=== PATIENT | male | born 1965 | race Caucasian/White ===

== ENCOUNTER → 2024-12-19 | Outpatient (CLI) | payer OTHER ==
--- NOTE | 2024-12-19 09:40 | MR ---
EXAMINATION TYPE: MR shoulder RT wo con DATE OF EXAM: 12/19/2024 6:39 AM COMPARISON: Radiographs 12/17/2024. CLINICAL INDICATION: Male, 59 years old with history of M25.511 PAIN IN RIGHT SHOULDER, Rt shoulder b one spur x 3 years TECHNIQUE: Multiplanar, multisequence imaging of the right shoulder is performed without contrast. FINDINGS: The long head biceps tendon appears intact and appropriately situated along the trochlear groove. Mild inhomogeneity and thickening of the subscapularis tendon which otherwise remains intact. There is severe degenerative change at the acromial clavicular joint with bulky marginal spurring, figueroa bchondral cystic change and edema, and capsular hypertrophy. Large inferior spur of greater significa nce the underlying myotendinous junction of the supraspinatus. There is mild effusion in the subacromial/subdeltoid bursa with extensive bursal sided fraying of bot h supraspinatus and infraspinatus tendons. Heterogeneity of both tendons also noted and a very shallo w bursal sided tear of the anterior to mid supraspinatus tendon measuring 1.8 cm long by 8 mm AP. No high-grade partial or full-thickness rotator cuff tear is seen. No atrophy of the rotator cuff musculature. The glenohumeral joint is intact without significant joint effusion. There is some irregularity of the glenoid labrum along the posterior aspect of the superior labrum, c oronal image 17. A labral cyst. No Hill-Sachs deformity or os acromiale. Mild patchy red marrow hyperplasia noted. No suspicious bone marrow replacement. IMPRESSION: 1. Mild to moderate diffuse rotator cuff tendinosis. In addition, there is severe AC joint OA with a large inferior spur abrading against the underlying cuff. 2. Secondary extensive bursal sided fraying of the supraspinatus/infraspinatus tendons as well as a v winter shallow bursal sided tear of the anterior to mid supraspinatus tendon measuring 1.8 x 0.8 cm. No high-grade partial or full-thickness rotator cuff tear. 3. Suspect a small tear of the posterior aspect of the superior labrum. [facility], Workstation: [facility], 12/19/2024 9:37 AM
== END | disposition home or self-care (01) ==
LOC: RADMRIMAIN 05:57
PROVIDERS: ATTEND Orthopaedic Surgery
DX: M19.011 Primary osteoarthritis, right shoulder (principal); M67.813 Other specified disorders of tendon, right shoulder

== ENCOUNTER → 2025-03-05 | Outpatient (CLI) | payer OTHER ==
--- NOTE | 2025-03-06 12:40 | CA ---
Transthoracic Echo Report Name: Alonso Ely Age: 59 Gender: M : 1965 Exam Date: 03/05/2025 15:06 Exam Location: [facility] Ht (in): 72 Wt (lb): 190 Ordering Physician: Zeus Liao DO Attending/Referring Phys: Zeus Liao DO Relocation Associate Shamika Jurado RDCS Procedure CPT: Indications: I34.1 NONRHEUMATIC MITRAL (VALVE) PROLAPSE Cardiac Hx: Technical Quality: Good Contrast 1: Total Dose (mL): Contrast 2: Total Dose (mL): MEASUREMENTS (Male / Female) Normal Values 2D ECHO LV Diastolic Diameter PLAX 5.2 cm 4.2 - 5.9 / 3.9 - 5.3 cm LV Systolic Diameter PLAX 3.5 cm IVS Diastolic Thickness 0.8 cm 0.6 - 1.0 / 0.6 - 0.9 cm LVPW Diastolic Thickness 0.8 cm 0.6 - 1.0 / 0.6 - 0.9 cm LV Relative Wall Thickness 0.3 LVOT Diameter 2.4 cm LV Diastolic Volume MOD BP 131.5 cm??? 67 - 155 / 56 - 104 cm??? LV Systolic Volume MOD BP 48.5 cm??? 22 - 58 / 19 - 49 cm??? LV Ejection Fraction MOD BP 63.2 % >= 55 % LV Cardiac Index MOD BP 2411.1 cm???/min???m??? LV Diastolic Volume MOD 4C 139.5 cm??? LV Systolic Volume MOD 4C 55.3 cm??? LV Ejection Fraction MOD 4C 60.3 % LV Cardiac Index MOD 4C 2442.3 cm???/min???m??? LV Diastolic Length 4C 8.5 cm LV Systolic Length 4C 7.1 cm LV Diastolic Volume MOD 2C 120.6 cm??? LV Systolic Volume MOD 2C 42.1 cm??? LV Ejection Fraction MOD 2C 65.0 % LV Cardiac Index MOD 2C 2276.3 cm???/min???m??? LV Diastolic Length 2C 8.8 cm LV Systolic Length 2C 6.9 cm LA Volume 60.4 cm??? 18 - 58 / 22 - 52 cm??? LA Volume Index 28.7 cm???/m??? 16 - 28 cm???/m??? Ascending Aorta Diameter 3.1 cm DOPPLER AV Peak Velocity 159.7 cm/s AV Peak Gradient 10.2 mmHg AV Mean Velocity 113.3 cm/s AV Mean Gradient 5.8 mmHg AV Velocity Time Integral 31.9 cm LVOT Peak Velocity 94.6 cm/s LVOT Peak Gradient 3.6 mmHg LVOT Velocity Time Integral 20.2 cm LVOT Stroke Volume 94.5 cm??? LVOT Stroke Volume Index 45.3 ml/m??? LVOT Cardiac Index 2742.3 cm???/min???m??? AV Area Cont Eq vti 3.0 cm??? AV Area Cont Eq pk 2.8 cm??? MV Area PHT 3.3 cm??? Mitral E Point Velocity 53.4 cm/s Mitral A Point Velocity 43.7 cm/s Mitral E to A Ratio 1.2 MV Deceleration Time 226.8 ms TR Peak Velocity 219.2 cm/s TR Peak Gradient 19.2 mmHg Right Atrial Pressure 5.0 mmHg Pulmonary Artery Systolic Pressu 24.2 mmHg Right Ventricular Systolic Press 24.2 mmHg PV Peak Velocity 100.8 cm/s PV Peak Gradient 4.1 mmHg FINDINGS Left Ventricle Left ventricular ejection fraction is estimated at 55-60 %. Left ventricular cavity size normal. Left ventricular wall thickness normal. No obvious regional wall motion abnormalities. Right Ventricle Normal right ventricular size and function. Right ventricular systolic pressure within normal limits. Right Atrium Normal right atrial size. Left Atrium Mildly increased left atrial volume. Mitral Valve Structurally normal mitral valve. Mild prolapse of the posterior mitral valve leaflet. No mitral stenosis. Mild mitral regurgitation. Aortic Valve Trileaflet aortic valve. Aortic valve sclerosis. No aortic valve stenosis or regurgitation. Tricuspid Valve Structurally normal tricuspid valve. No tricuspid stenosis. Trace to mild tricuspid regurgitation. Pulmonic Valve Structurally normal pulmonic valve. No pulmonic stenosis. No pulmonic regurgitation. Pericardium No pericardial effusion. Aorta Normal size aortic root and proximal ascending aorta. CONCLUSIONS LVEF 55 to 60% No obvious regional wall motion abnormality Mild prolapse of posterior mitral leaflet with trace to mild mitral regurgitation Normal RV size systolic function Mild left atrial dilatation No prior echo to compare with in database Previewed by: Dr Tip Marcelo (Electronically Signed) Final Date: 06 March 2025 12:39
== END | disposition home or self-care (01) ==
LOC: RADECHMAIN 14:57
PROVIDERS: ATTEND Internal Medicine
DX: I34.1 Nonrheumatic mitral (valve) prolapse (principal); I51.7 Cardiomegaly
CPT/HCPCS: 93306

== ENCOUNTER 2025-04-11 07:28 | Day surgery (SDC) | payer OTHER ==
[2025-04-09 11:29] VITALS: BMI 26.4
[2025-04-11] MEDS: EMPTY BAG 1 BAG with SODIUM CHLORIDE 0.9% 1,000 ML IV SCH (08:03)
[2025-04-11 08:05] VITALS: RESP 16; TEMP 98.4
[2025-04-11] MEDS: IV FLUID CONTINUATION 1,000 ML IV ONE (08:05)
[2025-04-11 08:22] LABS: African American GFR (CKD) >90 (>60 ml/min/1.73 sqM); Anion Gap 12 mmol/L; Blood Urea Nitrogen 14 mg/dL (9-20); Calcium 9.7 mg/dL (8.4-10.2); Carbon Dioxide 21 mmol/L (22-30); Chloride 108 mmol/L (98-107); Glucose 110 mg/dL (74-99); Non-African American GFR(CKD) >90 (>60 ml/min/1.73 sqM); Potassium 3.6 mmol/L (3.5-5.1); Sodium 141 mmol/L (137-145)
[2025-04-11 08:31] LABS: Basophils # (A) 0.07 10*3/uL (0.00-0.10); Basophils % (A) 0.7 %; Eosinophils # (A) 0.27 10*3/uL (0.04-0.35); Eosinophils % (A) 2.5 %; HCT 44.7 % (39.6-50.0); HGB 15.4 g/dL (13.0-17.0); Lymphocytes # (A) 4.06 10*3/uL (0.90-5.00); Lymphocytes % (A) 38.3 %; MCH 30.6 pg (27.0-32.0); MCHC 34.5 g/dL (32.0-37.0); MCV 88.7 fL (80.0-97.0); Mean Platelet Volume 9.3 fL (9.5-12.2); Monocytes # (A) 1.14 10*3/uL (0.20-1.00); Monocytes % (A) 10.7 %; Neutrophils # (A) 5.03 10*3/uL (1.80-7.70); Neutrophils % (A) 47.4 %; Platelet Count 198 10*3/uL (140-440); RBC 5.04 10*6/uL (4.40-5.60); RDW 12.9 % (11.5-14.5); WBC 10.61 10*3/uL (4.50-10.00)
[2025-04-11] MEDS: fentaNYL (PF) 50 MCG/1 ML VIAL IVP ONE (09:18)
[2025-04-11] MEDS: NITROGLYCERIN 1000MCG/10ML SYRINGE INTRAARTER ONE (09:18)
[2025-04-11] MEDS: LIDOCAINE 2% (PF) 20 MG/ML 5 ML VIAL SQ ONE (09:18)
[2025-04-11] MEDS: VERAPAMIL 2.5 MG/ML 4 ML VIAL INTRAARTER ONE (09:18)
[2025-04-11] MEDS: MIDAZOLAM HCL 10 MG/10 ML VIAL IVP ONE (09:18)
[2025-04-11] MEDS: HEPARIN SODIUM 1,000 UN/ML (10ML VL) IV ONE (09:18)
[2025-04-11] MEDS: ONDANSETRON 4 MG/2 ML VIAL IVP ONE (09:29)
[2025-04-11] MEDS: MIDAZOLAM 2 MG/2 ML VIAL IVP ONE (09:33)
[2025-04-11] MEDS: IOPAMIDOL-370 100ML BTL INTRATHECA ONE (09:46)
[2025-04-11] MEDS: HEPARIN SODIUM,PORCINE (1 ML) 2,500 UNIT in SODIUM CHLORIDE 0.9% 250 ML IRRIGATION ONE (09:46)
[2025-04-11] MEDS: HEPARIN SODIUM,PORCINE 10,000 UNIT in SODIUM CHLORIDE 0.9% 1,000 ML IRRIGATION ONE (09:46)
--- NOTE | 2025-04-11 10:47 | P.OP ---
Date of Procedure: 04/11/25 Description of Procedure: Preoperative diagnosis: Thania 3 peripheral arterial disease [right] lower extremity worse than left Postoperative diagnosis: Same Procedure: Ultrasound-guided right radial artery access Placement of catheter in infrarenal abdominal aorta, selective second order, from radial approach Aortogram with bilateral lower extremity runoffs Selective third order right lower extremity angiogram via iliac artery catheter placement Moderate conscious sedation with personal monitoring certified RN administration and personal hemodynamic monitoring for 24 minutes Surgeon: Zee Brown D.O. EBL: Less than 5 cc IV fluids: See records Urine output: Not measured Drains: None Complications: None immediately apparent Condition: Stable to recovery Operative indication and findings: Patient is [59] a-year-old with peripheral vascular disease. On workup and evaluation was found to have abnormal ABIs prompting recommendations for an angiogram. Risks and benefits including but not limited to bleeding, infection, injury to the vessel, stroke, cardiopulmonary risks and ischemic changes to the extremities were discussed. They seemingly understood this willing to proceed. Procedure in detail: Patient was taken to the special suite and placed in supine position. The right upper extremity was prepped and draped in usual sterile fashion. A preprocedural timeout was performed, all parties were in agreement. Using the ultrasound, the radial artery was identified. The skin overlying was anesthetized with 1% lidocaine plain. The artery was patent without significant calcific disease and a permanent image was stored. Under direct visualization, the artery was accessed and Seldinger technique was used to place a 5 slender sheath. Catheters and wires were then used to selectively place a catheter across the subclavian, into the aortic arch and then selectively in the descending thoracic aorta and down into the abdominal aorta. Aortogram was performed. Catheter was then advanced to the level of the iliac bifurcation. A bilateral lower extremity step-off was performed. To allow for better evaluation of the areas of occlusion and reconstitution, using catheters and wires the right common iliac artery was accessed selectively. The catheter was placed into the distal common iliac artery and a right lower extremity angiogram was performed after satisfactory images, catheters and wires were removed. The sheath was removed and a TR band was placed. Angiographic interpretation: Visualized portions of the aorta appear normal in course and caliber. Visualized portions of the celiac, superior mesenteric and renal arteries appear patent without significant disease. The distal aorta is patent. The bilateral common, internal and external iliac arteries appear patent without significant disease. On the right the common femoral artery appears patent without significant disease. The profunda is patent without significant disease. The superficial femoral artery has some diminished flow through the thigh with mild diffuse disease up until the area of occlusion at the mid thigh. There is reconstitution of flow at the distal thigh. There are multiple areas of collaterals through the right lower extremity. The visualized portions of the popliteal artery on the right are patent without significant disease but again with multiple collateral vessels. The infrapopliteal area has 3 vessels however diminutive due to lack of contrast. On the left, the common femoral, superficial femoral and profunda appear patent. There is a high-grade focal stenosis of the superficial femoral artery at the mid thigh with quick reconstitution. There are multiple collateral vessels and further distal reconstitution via collateral at the proximal popliteal artery. Visualized portion of the popliteal artery appear patent without significant disease. Difficult visualization of the infrapopliteal vessels however I believe the anterior tibial artery appears occluded at its takeoff. The tibioperoneal trunk appears patent. The peroneal artery appears patent down to the ankle where it reconstitutes the posterior tibial artery. The posterior tibial artery at the calf is patent proximally but occludes early after its takeoff. Plan - Discharge Summary Discharge Rx Participant: No New Discharge Prescriptions: No Action Aspirin 81 mg PO QAM Atorvastatin Calcium 40 mg PO QAM Inositol/Choline/Biofla/Vitb,C [Lipo Flavonoid Caplet] 500 mg PO DAILY HYDROcodone/APAP 10-325MG [[place] 10-325] 1 tab PO DAILY PRN PRN Reason: Pain lisinopriL [Zestril] 40 mg PO QAM cilostazoL [Pletal] 100 mg PO BID Discharge Medication List Aspirin 81 mg PO QAM 04/09/25 [History] Atorvastatin Calcium 40 mg PO QAM 04/09/25 [History] HYDROcodone/APAP 10-325MG [[place] 10-325] 1 tab PO DAILY PRN 04/09/25 [History] Inositol/Choline/Biofla/Vitb,C [Lipo Flavonoid Caplet] 500 mg PO DAILY 04/09/25 [History] cilostazoL [Pletal] 100 mg PO BID 04/09/25 [History] lisinopriL [Zestril] 40 mg PO QAM 04/09/25 [History] Follow up Appointment(s)/Referral(s): Zee Richmond DO [STAFF PHYSICIAN] - 04/24/25 11:15 am (FOLLOW UP APPOINTMENT WAS ALREADY MADE WITH DR. BROWN ON APRIL 24, 2025 AT 11:15. ) Patient Instructions/Handouts: Moderate Sedation (DC), Angiogram (DC), After Radial Heart Catheterization (GEN) Activity/Diet/Wound Care/Special Instructions: NO DRIVING FOR TWO DAYS. OK TO SHOWER TOMORROW/REMOVE DRESSING PRIOR TO SHOWER. NO NEED TO REAPPLY DRESSING. AVOID LOTIONS/POWDERS/CREAMS TO PUNCTURE SITE TO AVOID RISK OF INFECTION. SIGNS OF INFECTION IE: FEVER, RASH, UNUSUAL DRAINAGE OR HARD KNOT OR LUMP CONTACT DR TO BE EVALUATED. IF PUNCTURE SITE BLEEDS, APPLY FIRM PRESSURE AND GO TO ER. DO NOT DRIVE SELF. MEDICATIONS PER DR BROWN. F/U APPOINTMENT DIRECTED. AVOID PUSHING PULLING LIFTING MORE THAN 5 LBS FOR FIVE DAYS. Discharge Disposition: HOME SELF-CARE
--- NOTE | 2025-04-11 11:52 | IR ---
EXAMINATION TYPE: IR angio abdominal w runoff DATE OF EXAM: 04/11/2025 CLINICAL INDICATION: Male, 59 years old with history of right leg pain, 2.3min fluoro, 27.9Gycm2, TECHNIQUE: Fluoroscopy. COMPARISON: None. FINDINGS: Fluoroscopic guidance was provided during abdominal angiogram with runoff procedure perfor med by Dr. Vance. A total of 138 seconds of fluoroscopic time was utilized during the procedure and 278 spot images was acquired. TOTAL DAP = 27.9 Gycm2. IMPRESSION: As Above. [facility], , 04/11/2025 11:49 AM
[2025-04-11 12:06] VITALS: BP 110/78; PULSE 59
== END 2025-04-11 13:09 | disposition home or self-care (01) ==
LOC: CATHCVL 07:28
PROVIDERS: ATTEND Surgery
DX: I70.218 Atherosclerosis of native arteries of extremities with intermittent claudication, other extremity (principal); I10 Essential (primary) hypertension; E78.5 Hyperlipidemia, unspecified; I34.1 Nonrheumatic mitral (valve) prolapse; Z88.0 Allergy status to penicillin; Z79.02 Long term (current) use of antithrombotics/antiplatelets
CPT/HCPCS: 36247; 75625; 75716; 80048; 85025; C1769 ×2; C1894; J2250 ×2; J1644 ×3; J2405; Q9967; J2003; J3010; J2305

== ENCOUNTER 2025-04-30 08:32 | Day surgery (SDC) | payer OTHER ==
[2025-04-29 08:36] VITALS: BMI 25.7
[~2025-04-30 08:32] MED LIST: ALPRAZolam 0.25 MG TAB PO PRN; ALPRAZolam 0.5 MG TAB PO PRN; HEPARIN SODIUM,PORCINE (1 ML) 2,500 UNIT in SODIUM CHLORIDE 0.9% 250 ML IRRIGATION PRN; ZOLPIDEM 5 MG TAB PO PRN
[2025-04-30 09:14] LABS: Basophils # (A) 0.09 10*3/uL (0.00-0.10); Basophils % (A) 0.7 %; Eosinophils # (A) 0.17 10*3/uL (0.04-0.35); Eosinophils % (A) 1.3 %; HCT 45.7 % (39.6-50.0); HGB 15.9 g/dL (13.0-17.0); Lymphocytes # (A) 3.59 10*3/uL (0.90-5.00); Lymphocytes % (A) 27.7 %; MCHC 34.8 g/dL (32.0-37.0); MCV 89.1 fL (80.0-97.0); Mean Platelet Volume 9.1 fL (9.5-12.2); Monocytes # (A) 1.13 10*3/uL (0.20-1.00); Monocytes % (A) 8.7 %; Neutrophils # (A) 7.94 10*3/uL (1.80-7.70); Neutrophils % (A) 61.2 %; Platelet Count 201 10*3/uL (140-440); RBC 5.13 10*6/uL (4.40-5.60); RDW 12.8 % (11.5-14.5); WBC 12.97 10*3/uL (4.50-10.00)
[2025-04-30] MEDS: EMPTY BAG 1 BAG with SODIUM CHLORIDE 0.9% 1,000 ML IV SCH (09:20)
[2025-04-30 09:41] LABS: African American GFR (CKD) >90 (>60 ml/min/1.73 sqM); Anion Gap 11 mmol/L; Blood Urea Nitrogen 11 mg/dL (9-20); Calcium 9.5 mg/dL (8.4-10.2); Carbon Dioxide 19 mmol/L (22-30); Chloride 111 mmol/L (98-107); Glucose 113 mg/dL (74-99); Non-African American GFR(CKD) >90 (>60 ml/min/1.73 sqM); Sodium 141 mmol/L (137-145)
[2025-04-30 09:56] LABS: Potassium 4.6 mmol/L (3.5-5.1)
[2025-04-30] MEDS: MIDAZOLAM 2 MG/2 ML VIAL IVP ONE ×2 (10:40→11:17)
[2025-04-30] MEDS: LIDOCAINE 1% INJ 10MG/ML (20 ML MDV) SQ ONE (10:40)
[2025-04-30] MEDS: fentaNYL (PF) 50 MCG/1 ML VIAL IVP ONE ×3 (10:40→11:16)
[2025-04-30] MEDS: HEPARIN SODIUM 1,000 UN/ML (10ML VL) IVP ONE (10:49)
[2025-04-30] MEDS: SODIUM CHLORIDE 0.9% 1,000 ML IV ONE (10:50)
[2025-04-30] MEDS: HEPARIN SODIUM,PORCINE 10,000 UNIT in SODIUM CHLORIDE 0.9% 1,000 ML IRRIGATION PRN (10:50)
[2025-04-30] MEDS: IOPAMIDOL-370 100ML BTL INJ ONE (11:41)
--- NOTE | 2025-04-30 12:19 | P.OP ---
Date of Procedure: 04/30/25 Description of Procedure: Preoperative diagnosis: Thania 3 peripheral arterial disease right lower extremity, superficial femoral artery occlusive disease Postoperative diagnosis: Same Procedure: #1 ultrasound-guided left common femoral artery access 2. Left iliofemoral angiogram 3. Right lower extremity third order angiogram to distal popliteal artery 4. Atherectomy with Hawk M right superficial femoral artery 5. Percutaneous transluminal balloon angioplasty drug-coated balloon 6 x 250 6. Percutaneous transluminal stent placement Zilver 7 x 80, 7 x 120 7. Moderate consultation with personal monitoring certified artery ministration with hemodynamic monitoring x 64 minutes Surgeon: Zee Vance D.O. EBL: 10 cc IV fluids: See records Urine output: Not measured Drains: None Complications: None immediately apparent Condition: Stable to recovery Operative indication and findings: Patient is a 59-year-old male who had lifestyle-limiting [place] 3 right lower extremity pain with evidence of superficial femoral artery occlusion. Due to this the recommendations were for endovascular revascularization. Risk and benefits were discussed including an element to bleeding, infection, injury to the vessel. He seemed understood and was willing to proceed. Procedure in detail: Patient was brought to the op suite placed in supine position. The bilateral groins were prepped and draped in usual sterile fashion the ultrasound is utilized and the right common femoral artery was identified. The skin overlying was anesthetized 1% lidocaine plain. The artery was identified and the artery was accessed under ultrasound guidance. There was return of pulsatile bleeding and Seldinger technique was used with 6 Afghan sheath. An angiogram was performed showing widely patent common femoral, external iliac and common iliac artery without significant disease. The internal iliac artery was small. Catheters and wires were then used to traverse to the common iliac artery and the contralateral side selective of the superficial femoral artery and subsequently imaging was performed. At this point a longer IV sheath was placed over a glide advantage wire. A glide advantage and quick cross catheters were utilized to traverse the lesion and a confirmatory third order angiogram was performed of the distal popliteal artery with evidence of luminal gain and three-vessel takeoff. The AT appeared patent with occlusion shortly beyond its takeoff. The TP trunk is patent without significant disease. The peroneal is widely patent to the ankle where it feeds of the previously occluded posterior tibial artery strongly at the ankle. There is reconstitution of the anterior tibial artery at the mid calf as well. A spider filter was then placed in the distal popliteal artery. A Hawk M atherectomy device was passed with multiple passes with removal of significant calcific disease. The area was then ballooned with a 6 x 250 drug-coated balloon. Repeat imaging was performed, there was some atypical appearance in the distal superficial femoral artery as well as a portion of the proximal therefore decision was made to place a stent due to the hang up of contrast in this area. A Zilver 7 x 80 stent was placed first distally followed by a 7 x 120 stent to further cover the full area of disease and intervention. Repeat imaging was excellent showing brisk flow through the superficial femoral artery with maintenance of the same tibial vessel as previously visualized. At this point catheters and wires were then removed. The sheath was removed and a short 6 Afghan sheath was placed. A closure device was utilized and manual pressure was held. Patient was allowed to awaken and transferred to recovery in stable condition. There was a palpable PT pulse on the right foot at this time. Plan - Discharge Summary Discharge Rx Participant: No New Discharge Prescriptions: No Action Aspirin 81 mg PO QAM Atorvastatin Calcium 40 mg PO QAM HYDROcodone/APAP 10-325MG [[place] 10-325] 1 tab PO DAILY PRN PRN Reason: Pain lisinopriL [Zestril] 40 mg PO QAM Discharge Medication List Aspirin 81 mg PO QAM 04/09/25 [History] Atorvastatin Calcium 40 mg PO QAM 04/09/25 [History] HYDROcodone/APAP 10-325MG [[place] 10-325] 1 tab PO DAILY PRN 04/09/25 [History] lisinopriL [Zestril] 40 mg PO QAM 04/09/25 [History] Follow up Appointment(s)/Referral(s): Zee Richmond DO [STAFF PHYSICIAN] - 05/15/25 10:45 am (FOLLOW UP APPOINTMENT MADE. ) Activity/Diet/Wound Care/Special Instructions: Resume regular diet. Resume regular bathing starting tomorrow. No heavy lifting. No driving for 2 to 3 days. Discharge Disposition: HOME SELF-CARE
--- NOTE | 2025-04-30 14:10 | IR ---
EXAMINATION TYPE: IR stent intravas non coronary Intraoperative/procedural fluoroscopic services were provided. CLINICAL INDICATION:Male, 59 years old with history of right leg pain, 11.9min fluoro, 22.2Gycm2; , P HH FINDINGS: Multiple fluoroscopic images for lower extremity vascular stent. Total fluoroscopy time is 11.9 min. DAP: 22.2 Gycm2 Please see the operative/procedural note for further details. [facility], , 04/30/2025 2:07 PM
[2025-04-30 15:18] VITALS: RESP 15
[2025-04-30 16:34] VITALS: TEMP 98.7
[2025-04-30] MEDS: lisinopriL 20 MG TAB PO STA (16:56)
[2025-04-30 18:14] VITALS: BP 173/89; PULSE 65
[2025-05-01] MEDS ORDERED: lisinopriL 20 MG TAB PO SCH (09:00)
== END 2025-04-30 20:07 | disposition home or self-care (01) ==
LOC: CATHCVL 08:32 → 6NMEDSUR 11:43 → CATHCVL 20:07
PROVIDERS: ATTEND Surgery
DX: I70.218 Atherosclerosis of native arteries of extremities with intermittent claudication, other extremity (principal)
CPT/HCPCS: 80048; 85025; J2250; J1644 ×2; J2003; Q9967; J3010; 37227; 75710; 76937

== ENCOUNTER 2025-05-22 02:52 | Emergency (ER) | payer OTHER ==
--- NOTE | 2025-05-22 03:58 | ED ---
General Adult HPI - General Chief complaint: Skin/Abscess/Foreign Body Stated complaint: Infection Time Seen by Provider: 05/22/25 03:26 Source: patient Mode of arrival: ambulatory Limitations: no limitations - History of Present Illness Initial comments: Patient is a 59 y/o male PMH PAD recent vascular stenting of the lower extremities approximately 3 weeks ago, atrial fibrillation, HTN, HLD presenting for rash. Pt states that last night he noticed a bumpy and erythematous itchy rash scattered across his knees and buttocks. He then noticed that it seemed to spread to his hands and forearms. He took 25 mg of benadryl without relief of itching so came to the the ED. Pt states that his procedure was complicated by a hematoma of the left groin that has since resolved and he had intermittent tingling of his left leg, where he is supposed to have further stents planced, however tingling/ numbness is not present today. He was worried that because t here was no longer numbness in his leg that something potentially moved, causing an infection and his present rash. Pt has allergies to buproprion, erythromycin and penicillins but denies recent exposures to these. Denies any new detergents, lotions or soaps. No recent outdoor exposures or other known allergies. Denies fevers, chills, shortness of breath, tongue swelling, throat swelling dizziness, nausea, vomiting or abdominal pain. - Related Data Home Medications Medication Instructions Recorded Confirmed Aspirin 81 mg PO QAM 04/09/25 04/29/25 Atorvastatin Calcium 40 mg PO QAM 04/09/25 04/29/25 HYDROcodone/APAP 10-325MG [Wiggins 1 tab PO DAILY PRN 04/09/25 04/29/25 10-325] lisinopriL [Zestril] 40 mg PO QAM 04/09/25 04/29/25 Previous Rx's Medication Instructions Recorded Clopidogrel [Plavix] 75 mg PO DAILY #90 tablet 04/30/25 Allergies Allergy/AdvReac Type Severity Reaction Status Date / Time bupropion [From Wellbutrin] Allergy Rash/Hives Verified 05/22/25 02:57 erythromycin base Allergy burning Verified 05/22/25 02:57 sensation w/ IV Penicillins Allergy Anaphylaxis Verified 05/22/25 02:57 Review of Systems ROS Statement: Those systems with pertinent positive or pertinent negative responses have been documented in the HPI. ROS Other: All systems not noted in ROS Statement are negative. Past Medical History Past Medical History: Atrial Fibrillation, Hyperlipidemia, Hypertension, Mitral Valve Prolapse (MVP), Osteoarthritis (OA), Vascular Disorder Additional Past Medical History / Comment(s): "sores" left foot-using neosporin, new a fib on watch-referral being made from pcp to production helper,([facility] 1987-closed head injury,pneumothorax, rt tibia/fibula,pneumothorax-not sure what side),tinnitis,had thyroid problems as History of Any Multi-Drug Resistant Organisms: None Reported Past Surgical History: Orthopedic Surgery Additional Past Surgical History / Comment(s): arthroscopy left knee repair meniscus,acromioplasty left shoulder, AORTAGRAM WITH RUNOFF, SPLEENECTOMY Past Anesthesia/Blood Transfusion Reactions: No Reported Reaction Additional Past Anesthesia/Blood Transfusion Reaction / Comment(s): vertigo. no problems with prior blood transfusion Past Psychological History: No Psychological Hx Reported Smoking Status: Current every day smoker Past Alcohol Use History: Daily Past Drug Use History: None Reported - Past Family History Mother Family Medical History: Cancer Sister(s) Family Medical History: Cancer General Exam - General Exam Comments Initial Comments: PE: CONSTITUTIONAL: No apparent distress, well appearing SKIN: Warm, dry, no jaundice, no petechiae, no splinter hemorrhages, erythematous urticarial rash along inner buttocks, dorsal aspect of hands and wrists and few small urticarial lesions along right inner knee EYES: Pupils are equally round, extraocular movements intact without nystagmus, clear conjunctiva, non-icteric sclera HENT: Normocephalic, atraumatic, moist mucus membranes, oropharynx clear without exudates, no tongue swelling or oropharyngeal edema NECK: , Full range of motion, normal appearance PULMONARY: Clear to auscultation without wheezes, rhonchi, or rales, normal excursion, no accessory muscle use and no stridor CARDIOVASCULAR: Regular rate, rhythm, normal S1 and S2. No appreciated murmurs, rubs or gallops. Strong2 2+ dorsalis pedis pulses with intact distal perfusion. No lower extremity edema. Extremities are well perfused without pallor or duskiness GASTROINTESTINAL: Soft, active bowel sounds throughout, non-tender, non- distended, no palpable masses, no rebound or guarding. No hepatosplenomegaly MUSCULOSKELETAL: Extremities have no gross deformity, no edema or swelling. No calf swelling NEUROLOGIC:_a/o x 3, GCS 15, normal mentation and speech. Moves all extremities x 4 without motor or sensory deficit PSYCHIATRIC:_normal mood and affect, thought process is clear and linear Limitations: no limitations Course Vital Signs 05/22/25 05/22/25 02:57 04:28 Temperature 97.5 F L 97.8 F Pulse Rate 70 63 Respiratory 16 18 Rate Blood Pressure 164/87 111/86 O2 Sat by Pulse 99 97 Oximetry Medical Decision Making - Medical Decision Making Was pt. sent in by a medical professional or institution (, PA, OIL CHANGE TECHNICIAN, urgent care, hospital, or [facility]...) When possible be specific @ -No Did you speak to anyone other than the patient for history (EMS, parent, family, police, friend...)? What history was obtained from this source @ -No Did you review nursing and triage notes (agree or disagree)? Why? @ -I reviewed nursing and triage notes-yes rash started last night, vascular stent done 3 weeks ago Were old charts reviewed (outside hosp., previous admission, EMS record, old EKG, old radiological studies, urgent care reports/EKG's, [facility] records)? Report findings @ -Medical records reviewed-reviewed operative note on 04/30/2025 states that patient had a left femoral angiogram, right lower extremity. Order angiogram to distal popliteal artery, arthrectomy, percutaneous angioplasty and stent placement. Differential Diagnosis (chest pain, altered mental status, abdominal pain women, abdominal pain men, vaginal bleeding, weakness, fever, dyspnea, syncope, headache, dizziness, GI bleed, back pain, seizure, CVA, palpatations, mental health, musculoskeletal)? Differential diagnosis remains broad however top considerations include contact dermatitis, allergic reaction to stenting materials, anaphylaxis, arthropod bites, cellulitis, this is not an all inclusive list. Pt's rash is not consistent with cellulitis and stents were placed 3 weeks ago and onset of symptoms were tonight, therefor I do not feel symptoms are consistent with reaction to stent materials. Pt afebrile, rash is not well demarcated along one certain region, and rash is urticarial. Patient does not have additional symptoms consistent with anaphylaxis. EKG interpreted by me (3pts min.). @ -As above X-rays interpreted by me (1pt min.). @ -None done CT interpreted by me (1pt min.). @ -None done U/S interpreted by me (1pt. min.). @ -None done What testing was considered but not performed or refused? (CT, X-rays, U/S, labs)? Why? @ -None What meds were considered but not given or refused? Why? @ -None Did you discuss the management of the patient with other professionals (professionals i.e. , PA, OIL CHANGE TECHNICIAN, lab, RT, psych nurse, social service coordinator, lead radiologic technologist, teacher, combat systems officer, continuous pillowcase cutter)? Give summary @ -No Was smoking cessation discussed for >3mins.? @ -No Was critical care preformed (if so, how long)? @ -No Were there social determinants of health that impacted care today? How? (Homelessness, low income, unemployed, alcoholism, drug addiction, transportation, low edu. Level, literacy, decrease access to med. care, senior living, rehab)? @ -No Was there de-escalation of care discussed even if they declined (Discuss DNR or withdrawal of care, Hospice)? @ -No What co-morbidities impacted this encounter? (DM, HTN, Smoking, COPD, CAD, Cancer, CVA, ARF, Chemo, Hep., AIDS, mental health diagnosis, sleep apnea, morbid obesity)? @ PAD Was patient admitted / discharged? Hospital course, mention meds given and route, prescriptions, significant lab abnormalities, going to OR and other pertinent info. @ -Discharged- This is a pleasant 59 y/o gentleman presenting today for itchy urticarial rash x 1 night. VSS on arrival. On assessment pt is well appearing, awake, alert pleasant in NAD. Pt displayed areas of rash along buttocks, knee, hands and wrist. Pt's was present as reporting developer, pt showed me areas of rash before I was able to ask if he would like an additional reporting developer. Rash appears urticarial. He has no systemic symptoms. Extremities are well perfused with 2+ DP pulses in bilateral LE. Discussed with pt my concerns for possible allergic reaction/ contact dermatitis though unsure of source. Discussed plan for steroids, benadryl and pepcid. Directed pt upon returning home with take a shower and wash thoroughly with soap and water. Pt has a follow up appointment with his PCP in the morning and vascular surgeon in the afternoon. We discussed signs and symptoms to monitor for warranting return to the ED such as fevers, shortness of breath, throat or tongue swelling or nausea/ vomiting. Pt verbalized understanding and was comfortable with plan for medications, discharge and outpatient follow up. In my medical judgment there is currently no evidence of an immediate life- threatening or surgical condition. Discharge is therefore indicated at this time. Discharge treatment instructions, follow up instructions, and appropriate emergency department return precautions were discussed with the patient and/or medical decision maker. Patient and/or medical decision maker expressed understanding of and agreed with the treatment plan, follow up instructions, and emergency department return precaution. All patient's and/or medical decision maker's questions were answered. The patient was advised that a small risk still exists that a serious condition could develop and was therefore instructed to return to the ED for any changes in symptoms, persistent symptoms, inability to obtain proper follow-up or for any further concerns. Patient received verbal and written instructions for this condition. Undiagnosed new problem with uncertain prognosis? @ -No Drug Therapy requiring intensive monitoring for toxicity (Heparin, Nitro, Insulin, Cardizem)? @ -No Were any procedures done? @ -No Diagnosis/symptom? @ contact dermatitis / urticarial rash Acute, or Chronic, or Acute on Chronic? @ acute Uncomplicated (without systemic symptoms) or Complicated (systemic symptoms)? @uncomplicated Side effects of treatment? @ -No Exacerbation, Progression, or Severe Exacerbation? @ -No Poses a threat to life or bodily function? How? (Chest pain, USA, PA, pneumonia, PE, COPD, DKA, ARF, appy, cholecystitis, CVA, Diverticulitis, Homicidal, Suicidal, threat to staff... and all critical care pts) @ -No Disposition Clinical Impression: Contact dermatitis Disposition: HOME SELF-CARE Condition: Good Instructions (If sedation given, give patient instructions): Dermatitis (ED) Additional Instructions: Every disease is a spectrum and a small chance still exists that a serious condition could develop, for this reason, please monitor yourself closely for new, changing or worsening symptoms, symptoms that persist beyond [48 hours], do not improve or begin to improve over the next 12 to 24 hours, shortness of breath, wheezing, sensation of throat swelling or tongue swelling, nausea vomiting, confusion, inability to tolerate/keep down fluids or your medications, inability to follow up with outpatient providers as instructed and should you experience these symptoms or should you have any further concerns for your wellbeing please return to the ED or call 911 immediately. Please take a shower upon arrival home, monitor closely for the above or worsening symptoms, please attend your scheduled doctors appointments. You may 25 mg to 50 mg of Benadryl every 8 hours as needed for itching. PLEASE call your primary care physician as soon as possible to arrange / discuss plan for followup appointment. Appointment in the next 1-3 days is strongly encouraged if possible. PLEASE let us know here before you leave if there is anything further we can do to be of any assistance. Take care and feel Better! Is patient prescribed a controlled substance at d/c from ED?: No Referrals: Zeus Liao, [Primary Care Provider] - 1-2 days
[2025-05-22] MEDS: FAMOTIDINE 20 MG TAB PO STA (04:22)
[2025-05-22] MEDS: diphenhydrAMINE 25 MG CAP PO STA (04:22)
[2025-05-22] MEDS: DEXAMETHASONE SOD PHOSPHATE 10 MG/ML 1 ML VIAL IM STA (04:23)
[2025-05-22 04:29] VITALS: BP 111/86; PULSE 63; RESP 18; TEMP 97.8
== END 2025-05-22 04:31 | disposition home or self-care (01) ==
LOC: EC 02:52
DX: L25.9 Unspecified contact dermatitis, unspecified cause (principal); I10 Essential (primary) hypertension; E78.5 Hyperlipidemia, unspecified; I48.91 Unspecified atrial fibrillation; F17.200 Nicotine dependence, unspecified, uncomplicated; Z88.0 Allergy status to penicillin; Z88.8 Allergy status to other drugs, medicaments and biological substances; Z88.1 Allergy status to other antibiotic agents
CPT/HCPCS: 99283; 96372; J1100

== ENCOUNTER → 2025-06-04 | Outpatient (CLI) | payer OTHER ==
--- NOTE | 2025-06-04 09:16 | CTL ---
EXAMINATION TYPE: CT Low Dose Lung DATE OF EXAM: 06/04/2025 8:54 AM COMPARISON: None. CLINICAL INDICATION: Male, 59 years old with history of Z12.2, F17.210 NICOTINE DEPENDENCE, CIGARETTE S, UN; Current smoker 1 ppd x 40 years, history of tobacco use. TECHNIQUE: Multiple axial non-contrast scans were obtained from approximately the lung apices through the upper abdomen. Coronal and sagittal reformatted images were obtained. Low dose technique was uti lized. MIP were created on a separate workstation and submitted for review. CT DLP: 119.5 mGycm, Automated exposure control for dose reduction was used. CT Contrast: Contrast used: None Oral contrast used: None FINDINGS: Lack of intravenous contrast and low dose technique limits the evaluation of the vascular and soft ti ssue structures. LUNGS: No evidence of pulmonary fibrosis. No evidence of focal consolidation, pneumothorax or pleural effusion. Centrilobular emphysema changes. Nodules: RUL: None. RML: None. RLL: None. ANURAG: None. LLL: None. AIRWAY: Patent and unremarkable. HEART: Size within normal limits. Moderate coronary artery calcifications present. MEDIASTINUM: No gross evidence of adenopathy. VASCULATURE: No aortic aneurysm. MUSCULOSKELETAL: Mild disc degeneration changes are present throughout the thoracolumbar spine. SOFT TISSUES/LYMPH NODES: Unremarkable. LOWER NECK: No significant findings. UPPER ABDOMEN: No significant findings. IMPRESSION: 1. No clinically significant pulmonary nodules. 2. Mild emphysema. 3. Moderate coronary artery atherosclerosis.. CT LUNG RAD AND CT CHEST RECOMMENDATION: Lung-Rad 2 Benign Appearance or Behavior: Continue annual sc reening with LDCT in 12 months. S Modifier (other clinically significant findings): None Recommend smoking cessation (if current smoker), or continuation of smoking cessation (if prior smoke r). Annual screening for lung cancer with low-dose computed tomography is recommended in adults ages 55 to 77 years who have a 30 pack-year smoking history and currently smoke or have quit within the pa st 15 years. Screening should be discontinued once a person has not smoked for 15 years or develops a health problem that substantially limits life expectancy or the ability or willingness to have curat evi lung surgery. Lung rads 2021 [email or web address] [email or web address], , 06/04/2025 9:14 AM
== END | disposition home or self-care (01) ==
LOC: RADCTMAIN 08:11
PROVIDERS: ATTEND Internal Medicine
DX: Z12.2 Encounter for screening for malignant neoplasm of respiratory organs (principal); F17.210 Nicotine dependence, cigarettes, uncomplicated; J43.2 Centrilobular emphysema; I25.10 Atherosclerotic heart disease of native coronary artery without angina pectoris
CPT/HCPCS: 71271